=== PATIENT | female | born 2000 | race Caucasian/White ===

== ENCOUNTER 2019-02-18 12:51 | Emergency (ER) | payer SELFPAY ==
[~2019-02-18] VITALS: Ht 152.4 cm; Wt 51.7 kg
[~2019-02-18 12:51] MED LIST: IBUP-1060 PO
--- NOTE | 2019-02-18 14:29 | PHYS DOC ---
Past Medical History Past Medical History: No Pertinent History (GILDA GASPAR APRN) Past Surgical History: Appendectomy, Other Additional Past Surgical Histo: UNKNOWN SURGERY (GILDA GASPAR APRN) Alcohol Use: None Drug Use: None (GILDA GASPAR APRN) Adult General Chief Complaint Chief Complaint: VAGINAL BLEEDING [facility] HPI Patient is a 19 year old female presents for evaluation of vaginal bleeding during . Patient reports is approximately 7 weeks , last menstrual period was 12/30/18. She is . Reports started having some bleeding last Monday. She was seen by an OB doctor, cannot remember the name of the clinic she was at on Monday. She did have a speculum exam at that time. She reports increased bleeding yesterday. Patient is Occitan-speaking only, information was obtained through the superintendent mechanical phone line. She denies medical history or prescription medications. She is unsure what her EDC is for this . She reports suprapubic tenderness. (GILDA GASPAR APRN) Review of Systems Review of Systems Constitutional: Denies fever or chills [] Eyes: Denies change in visual acuity, redness, or eye pain [] HENT: Denies nasal congestion or sore throat [] Respiratory: Denies cough or shortness of breath [] Cardiovascular: No additional information not addressed in [facility] [] GI: REPORTS SUPRAPUBIC PAIN, DENIES nausea, vomiting, bloody stools or diarrhea [] : VAGINAL BLEEDING [] Musculoskeletal: Denies back pain or joint pain [] Integument: Denies rash or skin lesions [] Neurologic: Denies headache, focal weakness or sensory changes [] Endocrine: Denies polyuria or polydipsia [] All other systems were reviewed and found to be within normal limits, except as documented in this note. (GILDA GASPAR APRN) Allergies Allergies Allergies Coded Allergies Type Severity Reaction Last Updated Verified No Known Drug Allergies 02/08/15 No (RADHA PALMA MD) Physical Exam Physical Exam Constitutional: Well developed, well nourished, no acute distress, non-toxic appearance. [] Neck: Normal range of motion, no tenderness, supple, no stridor. [] Cardiovascular:Heart rate regular rhythm, no murmur [] Lungs & Thorax: Bilateral breath sounds clear to auscultation [] Abdomen: Bowel sounds normal, soft, TTP SUPRAPUBIC, no masses, no pulsatile masses. [] Skin: Warm, dry, no erythema, no rash. [] Back: No tenderness, no CVA tenderness. [] : MINIMAL [place] DARK VAGINAL BLOOD IN VAULT, OS CLOSED, NO CMT OR ADNEXAL TTP Extremities: No tenderness, no cyanosis, no clubbing, ROM intact, no edema. [] Neurologic: Alert and oriented X 3, normal motor function, normal sensory function, no focal deficits noted. [] Psychologic: Affect normal, judgement normal, mood normal. [] (GILDA GASPAR APRN) Current Patient Data Vital Signs Vital Signs Date Time Temp Pulse Resp B/P (MAP) Pulse Ox O2 Delivery O2 Flow Rate FiO2 02/18/19 15:40 70 17 102/5 (37) 100 Room Air 02/18/19 13:31 98.3 98.3 (RADHA PALMA MD) Lab Values Laboratory Tests Test 02/18/19 13:48 02/18/19 14:10 02/18/19 14:55 Chlamydia DNA Probe Negative (Negative) Neisseria gonorrhoeae DNA Probe Negative (Negative) Maternal Serum HCG Beta Subunit 2634 mIU/mL (0-5) H Urine Collection Type Unknown Urine Color Yellow Urine Clarity Clear Urine pH 6.0 Urine Specific [place] <=1.005 Urine Protein Negative mg/dL (NEG-TRACE) Urine Glucose (UA) Negative mg/dL (NEG) Urine Ketones (Stick) Negative mg/dL (NEG) Urine Blood Small (NEG) Urine Nitrite Negative (NEG) Urine Bilirubin Negative (NEG) Urine Urobilinogen Dipstick 0.2 mg/dL (0.2 mg/dL) Urine Leukocyte Esterase Negative (NEG) Urine RBC 0 /HPF (0-2) Urine WBC 0 /HPF (0-4) Urine Squamous Epithelial Cells Few /LPF Urine Bacteria 0 /HPF (0-FEW) Microbiology 02/18/19 Wet Prep - Final, Complete (RADHA PALMA MD) EKG EKG [] (GILDA GASPAR APRN) Radiology/Procedures Radiology/Procedures [STATUS: REG ERORD. PHYSICIAN: GILDA GASPAR APRN REASON: bleeding PROCEDURE: OB <14 WKS W/TV Obstetrical ultrasound, 02/18/2019: HISTORY: Vaginal bleeding Transabdominal and transvaginal scans were obtained. The uterus measures 10 x 6 x 5 cm. There is a small smooth cystic structure within the central uterine cavity compatible with a gestational sac. It demonstrates a mean diameter of 6 mm compatible with a gestational age of 5 weeks and 2 days. No yolk sac or pole is evident within this sac. That is not considered abnormal at this early stage. No subchorionic hemorrhage is evident. The ovaries are of normal size. There is a 1.8 cm partially cystic structure in the left ovary, most likely representing a complicated/hemorrhagic cyst. There is blood flow in both ovaries. The adnexal regions are otherwise unremarkable. No free fluid is evident in the pelvis. IMPRESSION: 1. Early intrauterine as described above. Sonographic follow-up is suggested. 2. Small complicated cyst in the left ovary. Electronically signed by: Girish Cain MD (02/18/2019 2:43 PM) [facility] ] (GILDA GASPAR APRN) Course & Med Decision Making Course & Med Decision Making Pertinent Labs and Imaging studies reviewed. (See chart for details) [I spoke with the patient regarding ultrasound results of early intrauterine sac, no visible pole at this time, importance of follow-up with her OB doctor, strict pelvic rest, need for repeat hCG, patient verbalizes understanding of discharge instructions, all discussion was done through the superintendent mechanical phone as she is Occitan-speaking only. Patient's blood type is positive, not a candidate for RhoGAM.] (GILDA GASPAR APRN) Course & Med Decision Making Staff Physician Addendum: I was working in the ER during the course of this patient's visit. I was available for consultation as needed, but I was not directly involved in the care of this patient. (RADHA PALMA MD) Dragon Disclaimer Dragon Disclaimer This electronic medical record was generated, in whole or in part, using a voice recognition dictation system. (GILDA GASPAR APRN) Departure Departure Impression: Primary Impression: Threatened in first trimester Disposition: 01 HOME, SELF-CARE Condition: STABLE Referrals: NO PCP (PCP) Patient Instructions: Threatened Miscarriage, [id number] GILDA GASPAR APRN Feb 18, 2019 14:29 RADHA PALMA MD Feb 19, 2019 23:35
--- NOTE | 2019-02-18 14:46 | RAD ---
Obstetrical ultrasound, 02/18/2019: HISTORY: Vaginal bleeding Transabdominal and transvaginal scans were obtained. The uterus measures 10 x 6 x 5 cm. There is a small smooth cystic structure within the central uterine cavity compatible with a gestational sac. It demonstrates a mean diameter of 6 mm compatible with a gestational age of 5 weeks and 2 days. No yolk sac or pole is evident within this sac. That is not considered abnormal at this early stage. No subchorionic hemorrhage is evident. The ovaries are of normal size. There is a 1.8 cm partially cystic structure in the left ovary, most likely representing a complicated/hemorrhagic cyst. There is blood flow in both ovaries. The adnexal regions are otherwise unremarkable. No free fluid is evident in the pelvis. IMPRESSION: 1. Early intrauterine as described above. Sonographic follow-up is suggested. 2. Small complicated cyst in the left ovary. Electronically signed by: Girish Cain MD (02/18/2019 2:43 PM) [facility]
[2019-02-18 15:04] LABS: BILIRUBIN,URINE NEGATIVE (NEG); CLARITY,URINE CLEAR; COLOR,URINE YELLOW; NITRITE,URINE NEGATIVE (NEG); PROTEIN,URINE NEGATIVE (NEG-TRACE); UROBILINOGEN,URINE 0.2 mg/dL (0.2 mg/dL)
[2019-02-18 15:14] LABS: BACTERIA,URINE 0 /HPF (0-FEW); RBC,URINE 0 /HPF (0-2); SQUAMOUS EPITHELIAL CELL,UR FEW /LPF; WBC,URINE 0 /HPF (0-4)
[2019-02-18 15:40] VITALS: BP 102/5
[2019-02-19 13:49] LABS: GC PROBE Negative (Negative)
== END 2019-02-18 15:50 | disposition home or self-care (01) ==
LOC: ER 12:51
DX: O20.0 Threatened abortion (principal); Z90.89 Acquired absence of other organs; Z3A.01 Less than 8 weeks gestation of pregnancy
CPT/HCPCS: 36415; 76801; 76817; 81001; 84702; 86900; 86901; 87491; 87591; 99285; Q0111

== ENCOUNTER 2019-02-19 22:36 | Emergency (ER) | payer SELFPAY ==
[~2019-02-19] VITALS: Ht 152.4 cm; Wt 51.7 kg
[2019-02-19 23:13] LABS: BILIRUBIN,URINE NEGATIVE (NEG); COLOR,URINE YELLOW; NITRITE,URINE NEGATIVE (NEG); PH,URINE 7.5; PROTEIN,URINE NEGATIVE (NEG-TRACE); UROBILINOGEN,URINE 0.2 mg/dL (0.2 mg/dL)
[2019-02-19 23:19] LABS: BASO % 1 % (0-3); EOS # 0.2 x10^3/uL (0.0-0.7); EOS % 3 % (0-3); HEMATOCRIT 36.6 % (36.0-47.0); LYMPH # 2.5 x10^3/uL (1.0-4.8); LYMPH % 28 % (24-48); MEAN CORPUSCULAR HEMOGLOBIN 29 pg (25-35); MEAN CORPUSCULAR HGB CONC 33 g/dL (31-37); MEAN CORPUSCULAR VOLUME 87 fL (79-100); MONO # 0.7 x10^3/uL (0.0-1.1); MONO % 8 % (0-9); NEUT # 5.4 x10^3uL (1.8-7.7); NEUT % 60 % (31-73); PLATELET COUNT 344 x10^3/uL (140-400); RED BLOOD COUNT 4.19 x10^6/uL (3.50-5.40); RED CELL DISTRIBUTION WIDTH 14.3 % (11.5-14.5); WHITE BLOOD COUNT 8.9 x10^3/uL (4.0-11.0)
[2019-02-19 23:29] LABS: AMORPHOUS SEDIMENT,UR PRESENT /HPF; BACTERIA,URINE FEW /HPF (0-FEW); CLARITY,URINE HAZY; SQUAMOUS EPITHELIAL CELL,UR FEW /LPF; WBC,URINE RARE /HPF (0-4)
[2019-02-19 23:29] LABS: CALCIUM 9.7 mg/dL (8.5-10.1); CREATININE 0.7 mg/dL (0.6-1.0); GFR 106.7; POTASSIUM 4.3 mmol/L (3.5-5.1)
[2019-02-20 00:12] VITALS: BP 105/57
--- NOTE | 2019-02-20 00:40 | PHYS DOC ---
Past Medical History Past Medical History: No Pertinent History (KARMEN ALBERTS APRN) Past Surgical History: Appendectomy, Other Additional Past Surgical Histo: UNKNOWN SURGERY (KARMEN ALBERTS APRN) Alcohol Use: None Drug Use: None (KARMEN ALBERTS APRN) Adult General Chief Complaint Chief Complaint: VAGINAL BLEEDING HPI HPI 19-year-old female presents to ER via POV for complaints of vaginal bleeding and had US/labs obtained. Patient was evaluated in the ER last night for similar symptoms. Patient reports he has had increased bleeding and increased lower abdominal pain. She reports she did pass clots or possible tissue. Patient denies fever, nausea or vomiting, or urinary symptoms. She reports she is 2 para 1 with LMP 12/30/18. (KARMEN ALBERTS APRN) Review of Systems Review of Systems Constitutional: Denies fever or chills [] Respiratory: Denies cough or shortness of breath [] Cardiovascular: No additional information not addressed in HPI [] GI: Denies nausea, vomiting, bloody stools or diarrhea. Reports lower mid abd cramping : Denies dysuria or hematuria. Reports vaginal bleeding Musculoskeletal: Denies back pain or joint pain [] Integument: Denies rash or skin lesions [] Neurologic: Denies headache, focal weakness or sensory changes. Denies dizziness All other systems were reviewed and found to be within normal limits, except as documented in this note. (KARMEN ALBERTS APRN) Allergies Allergies Allergies Coded Allergies Type Severity Reaction Last Updated Verified No Known Drug Allergies 02/08/15 No (RADHA PALMA MD) Physical Exam Physical Exam Constitutional: Well developed, well nourished, no acute distress, non-toxic appearance. [] HENT: Normocephalic, atraumatic, oropharynx moist, nose normal. [] Eyes: Pupils equal, conjunctiva normal, no discharge. [] Neck: Normal range of motion, supple, no stridor. [] Cardiovascular: Heart rate regular rhythm, no murmur [] Lungs & Thorax: Bilateral breath sounds clear to auscultation- resp. equal/nonlabored Abdomen: Bowel sounds normal, soft- no distention/rigidity, tender mid low suprapubic, no masses, no pulsatile masses. [] Skin: Warm, dry, no erythema, no rash. [] Back: No tenderness, no CVA tenderness. [] Extremities: No tenderness, no cyanosis, no clubbing, ROM intact, no edema. [] Neurologic: Alert and oriented X 3, normal motor function, normal sensory funct ion, no focal deficits noted. [] Psychologic: Affect normal, judgement normal, mood normal. [] Pelvic Exam: 0010 External Genitalia: Normal Skin-no rash or lesions Speculum: Normal vaginal mucosa, mild amount darker red blood in vaginal vault. No tissue or clots. Cervical os closed (REFFITT,KARMEN Mccullough APRN) Current Patient Data Vital Signs Vital Signs Date Time Temp Pulse Resp B/P (MAP) Pulse Ox O2 Delivery O2 Flow Rate FiO2 02/20/19 00:12 78 105/57 (73) 100 Room Air 02/19/19 23:15 98.8 16 98.8 (RADHA PALMA MD) Lab Values Laboratory Tests Test 02/19/19 23:00 02/19/19 23:08 Urine Collection Type Unknown Urine Color Yellow Urine Clarity Hazy Urine pH 7.5 Urine Specific [place] 1.020 Urine Protein Negative mg/dL (NEG-TRACE) Urine Glucose (UA) Negative mg/dL (NEG) Urine Ketones (Stick) Negative mg/dL (NEG) Urine Blood Small (NEG) Urine Nitrite Negative (NEG) Urine Bilirubin Negative (NEG) Urine Urobilinogen Dipstick 0.2 mg/dL (0.2 mg/dL) Urine Leukocyte Esterase Negative (NEG) Urine RBC 6-10 /HPF (0-2) Urine WBC Rare /HPF (0-4) Urine Squamous Epithelial Cells Few /LPF Urine Amorphous Sediment Present /HPF Urine Bacteria Few /HPF (0-FEW) Urine Mucus Marked /LPF White Blood Count 8.9 x10^3/uL (4.0-11.0) Red Blood Count 4.19 x10^6/uL (3.50-5.40) Hemoglobin 12.0 g/dL (12.0-15.5) Hematocrit 36.6 % (36.0-47.0) Mean Corpuscular Volume 87 fL (79-100) Mean Corpuscular Hemoglobin 29 pg (25-35) Mean Corpuscular Hemoglobin Concent 33 g/dL (31-37) Red Cell Distribution Width 14.3 % (11.5-14.5) Platelet Count 344 x10^3/uL (140-400) Neutrophils (%) (Auto) 60 % (31-73) Lymphocytes (%) (Auto) 28 % (24-48) Monocytes (%) (Auto) 8 % (0-9) Eosinophils (%) (Auto) 3 % (0-3) Basophils (%) (Auto) 1 % (0-3) Neutrophils # (Auto) 5.4 x10^3uL (1.8-7.7) Lymphocytes # (Auto) 2.5 x10^3/uL (1.0-4.8) Monocytes # (Auto) 0.7 x10^3/uL (0.0-1.1) Eosinophils # (Auto) 0.2 x10^3/uL (0.0-0.7) Basophils # (Auto) 0.0 x10^3/uL (0.0-0.2) Maternal Serum HCG Beta Subunit 1546 mIU/mL (0-5) H Sodium Level 137 mmol/L (136-145) Potassium Level 4.3 mmol/L (3.5-5.1) Chloride Level 103 mmol/L (98-107) Carbon Dioxide Level 27 mmol/L (21-32) Anion Gap 7 (6-14) Blood Urea Nitrogen 14 mg/dL (7-20) Creatinine 0.7 mg/dL (0.6-1.0) Estimated GFR (Cockcroft-Gault) 106.7 Glucose Level 95 mg/dL (70-99) Calcium Level 9.7 mg/dL (8.5-10.1) Laboratory Tests 02/19/19 23:08 Laboratory Tests 02/19/19 23:08 (RADHA PALMA MD) EKG EKG [] (KARMEN ALBERTS APRN) Radiology/Procedures Radiology/Procedures [] (KARMEN ALBERTS APRN) Course & Med Decision Making Course & Med Decision Making Pertinent Labs reviewed. (See chart for details) Pt was evaluated in the ER for c/o vaginal bleeding during her HCG level was rechecked and is down to 1546 where last night level was 2634. Discussed with her passing tissue/clot discharge at home and lower HCG level- probable miscarriage and that she would need f/u with her [facility] [employer] [facility] in 24-48 hours for lab recheck and re-evaluation. Pt is in no distress and reports while in ER her abd pain had subsided and she had no increase in vaginal bleeding. H&H stable at 12.0/36.6. UA neg. for infection other labs unremarkable. Education provided on s&s to return to ER for and discharge instructions were discussed. Pt advised on strict vaginal rest and to avoid insertion of anything vaginal. Discharge instructions were discussed. Pt's blood type from previous results in her records was A+. (KARMEN ALBERTS APRN) Course & Med Decision Making Staff Physician Addendum: I was working in the ER during the course of this patient's visit. I was available for consultation as needed, but I was not directly involved in the care of this patient. (RADHA PALMA MD) Dragon Disclaimer Dragon Disclaimer This electronic medical record was generated, in whole or in part, using a voice recognition dictation system. (KARMEN ALBERTS APRN) Departure Departure Impression: Primary Impression: Threatened in first trimester Disposition: 01 HOME, SELF-CARE Condition: STABLE Referrals: NO PCP (PCP) Patient Instructions: Threatened Miscarriage Additional Instructions: Drink plenty of fluids. Tylenol as needed for pain as directed on container. Your [facility] doctor's office tomorrow and inform them of your Emergency De partment visits and follow-up with them in 48 hours for repeat level. Yesterday's level was 2634 and today that number had gone down to 1546. Take these papers with you to your [facility] [employer] [facility]'s office and show them those results. KARMEN ALBERTS APRN February 20, 2019 00:40 RADHA PALMA MD March 03, 2019 22:13
== END 2019-02-20 00:46 | disposition home or self-care (01) ==
LOC: ER 22:36
DX: O20.0 Threatened abortion (principal); R10.30 Lower abdominal pain, unspecified; Z90.89 Acquired absence of other organs; Z3A.01 Less than 8 weeks gestation of pregnancy
CPT/HCPCS: 36415; 80048; 81001; 84702; 85025; 99284

== ENCOUNTER 2019-10-21 14:33 | Emergency (ER) | payer SELFPAY ==
[~2019-10-21] VITALS: Ht 157.5 cm; Wt 52.2 kg
--- NOTE | 2019-10-21 16:35 | PHYS DOC ---
Past Medical History Past Medical History: No Pertinent History Past Surgical History: Appendectomy Additional Past Surgical Histo: UNKNOWN SURGERY Alcohol Use: None Drug Use: None Adult General Chief Complaint Chief Complaint: VAGINAL BLEEDING HPI HPI Patient is a 19 year old [f__sex] who presents with [] Review of Systems Review of Systems Constitutional: Denies fever or chills [] Eyes: Denies change in visual acuity, redness, or eye pain [] HENT: Denies nasal congestion or sore throat [] Respiratory: Denies cough or shortness of breath [] Cardiovascular: No additional information not addressed in HPI [] GI: Denies abdominal pain, nausea, vomiting, bloody stools or diarrhea [] : Denies dysuria or hematuria [] Musculoskeletal: Denies back pain or joint pain [] Integument: Denies rash or skin lesions [] Neurologic: Denies headache, focal weakness or sensory changes [] Endocrine: Denies polyuria or polydipsia [] All other systems were reviewed and found to be within normal limits, except as documented in this note. Allergies Allergies Allergies Coded Allergies Type Severity Reaction Last Updated Verified No Known Drug Allergies 02/08/15 No Physical Exam Physical Exam Constitutional: Well developed, well nourished, no acute distress, non-toxic appearance. [] HENT: Normocephalic, atraumatic, bilateral external ears normal, oropharynx moist, no oral exudates, nose normal. [] Eyes: PERRLA, EOMI, conjunctiva normal, no discharge. [] Neck: Normal range of motion, no tenderness, supple, no stridor. [] Cardiovascular:Heart rate regular rhythm, no murmur [] Lungs & Thorax: Bilateral breath sounds clear to auscultation [] Abdomen: Bowel sounds normal, soft, no tenderness, no masses, no pulsatile masses. [] Skin: Warm, dry, no erythema, no rash. [] Back: No tenderness, no CVA tenderness. [] Extremities: No tenderness, no cyanosis, no clubbing, ROM intact, no edema. [] Neurologic: Alert and oriented X 3, normal motor function, normal sensory function, no focal deficits noted. [] Psychologic: Affect normal, judgement normal, mood normal. [] Current Patient Data Vital Signs Vital Signs Date Time Temp Pulse Resp B/P (MAP) Pulse Ox O2 Delivery O2 Flow Rate FiO2 12/30/19 16:07 98.8 80 18 101/54 (70) 98 Room Air 98.8 Lab Values Laboratory Tests Test 10/21/19 16:15 10/21/19 16:20 10/21/19 16:30 Urine Collection Type Void Urine Color Yellow Urine Clarity Clear Urine pH 7.0 Urine Specific [place] 1.020 Urine Protein Negative mg/dL (NEG-TRACE) Urine Glucose (UA) Negative mg/dL (NEG) Urine Ketones (Stick) 40 mg/dL (NEG) Urine Blood Negative (NEG) Urine Nitrite Negative (NEG) Urine Bilirubin Negative (NEG) Urine Urobilinogen Dipstick 0.2 mg/dL (0.2 mg/dL) Urine Leukocyte Esterase Trace (NEG) Urine RBC 0 /HPF (0-2) Urine WBC Occ /HPF (0-4) Urine Squamous Epithelial Cells Many /LPF Urine Bacteria Few /HPF (0-FEW) Urine Mucus Slight /LPF POC Urine HCG, Qualitative Hcg positive (Negative) White Blood Count 7.6 x10^3/uL (4.0-11.0) Red Blood Count 4.04 x10^6/uL (3.50-5.40) Hemoglobin 12.1 g/dL (12.0-15.5) Hematocrit 35.3 % (36.0-47.0) L Mean Corpuscular Volume 87 fL (79-100) Mean Corpuscular Hemoglobin 30 pg (25-35) Mean Corpuscular Hemoglobin Concent 34 g/dL (31-37) Red Cell Distribution Width 14.6 % (11.5-14.5) H Platelet Count 297 x10^3/uL (140-400) Neutrophils (%) (Auto) 69 % (31-73) Lymphocytes (%) (Auto) 24 % (24-48) Monocytes (%) (Auto) 6 % (0-9) Eosinophils (%) (Auto) 1 % (0-3) Basophils (%) (Auto) 0 % (0-3) Neutrophils # (Auto) 5.3 x10^3/uL (1.8-7.7) Lymphocytes # (Auto) 1.8 x10^3/uL (1.0-4.8) Monocytes # (Auto) 0.4 x10^3/uL (0.0-1.1) Eosinophils # (Auto) 0.1 x10^3/uL (0.0-0.7) Basophils # (Auto) 0.0 x10^3/uL (0.0-0.2) Maternal Serum HCG Beta Subunit 37145 mIU/mL (0-5) H Laboratory Tests 10/21/19 16:30 EKG EKG [] Radiology/Procedures Radiology/Procedures 1634- Per lab pt's blood type is A+] PROCEDURE: PREG MORE THAN OR EQ TO 14 WKS OB ultrasound greater than 14 weeks limited HISTORY: Vaginal bleeding during Sonographic examination of the was performed by transabdominal technique and multiple static images were obtained. There is a single live intrauterine the heartbeat is confirmed at 147 bpm. The LMP of 07/17/2019 corresponds with 13 week 5 day gestational age and estimated confinement April 22, 2020 Size by ultrasound is 15 weeks 0 days estimated date of confinement April 13, 2020. The measurements are as follows: BPD 2.95 cm 15 weeks 3 days Head circumference 10 cm 14 weeks 6 days Abdominal discomfort is 8.8 cm 15 weeks 0 days Femur length 1.6 cm 40 weeks 5 days Visualization of structures is limited this early gestational age. There is a anterior fundal placenta. Maternal cervix appears normal measures 3.8 cm in length. IMPRESSION: 1. Single live intrauterine measures 15 weeks 0 days gestational age by ultrasound. 2. No abnormality identified. A short-term follow-up ultrasound could be performed if clinically indicated otherwise a structural survey would be performed at 18-21 weeks gestational age. Course & Med Decision Making Course & Med Decision Making Pertinent Labs and Imaging studies reviewed. (See chart for details) [] Dragon Disclaimer Dragon Disclaimer This electronic medical record was generated, in whole or in part, using a voice recognition dictation system. Departure Departure Impression: Primary Impression: Threatened miscarriage Additional Impression: Vaginal bleeding in patient after first trimester Disposition: 01 HOME, SELF-CARE Condition: STABLE Referrals: JARON TENORIO Patient Instructions: Threatened Miscarriage, [id number], Vaginal Bleeding During , Second Trimester Additional Instructions: Pelvic rest as discussed until follow up with Dr. Tabares. Call the office in the morning to schedule follow up in 1-2 days. Return to the ER if symptoms worsen. Problem Qualifiers YURI CARRASCO [employer] Oct 21, 2019 16:35
[2019-10-21 16:37] LABS: BILIRUBIN,URINE NEGATIVE (NEG); CLARITY,URINE CLEAR; COLOR,URINE YELLOW; NITRITE,URINE NEGATIVE (NEG); PROTEIN,URINE NEGATIVE (NEG-TRACE); UROBILINOGEN,URINE 0.2 mg/dL (0.2 mg/dL)
[2019-10-21 16:39] LABS: BASO % 0 % (0-3); EOS # 0.1 x10^3/uL (0.0-0.7); EOS % 1 % (0-3); HEMATOCRIT 35.3 % (36.0-47.0); HEMOGLOBIN 12.1 g/dL (12.0-15.5); LYMPH # 1.8 x10^3/uL (1.0-4.8); LYMPH % 24 % (24-48); MEAN CORPUSCULAR HEMOGLOBIN 30 pg (25-35); MEAN CORPUSCULAR HGB CONC 34 g/dL (31-37); MEAN CORPUSCULAR VOLUME 87 fL (79-100); MONO # 0.4 x10^3/uL (0.0-1.1); MONO % 6 % (0-9); NEUT # 5.3 x10^3/uL (1.8-7.7); NEUT % 69 % (31-73); PLATELET COUNT 297 x10^3/uL (140-400); RED BLOOD COUNT 4.04 x10^6/uL (3.50-5.40); RED CELL DISTRIBUTION WIDTH 14.6 % (11.5-14.5); WHITE BLOOD COUNT 7.6 x10^3/uL (4.0-11.0)
[2019-10-21 16:56] LABS: BACTERIA,URINE FEW /HPF (0-FEW); RBC,URINE 0 /HPF (0-2); SQUAMOUS EPITHELIAL CELL,UR MANY /LPF; WBC,URINE OCC /HPF (0-4)
--- NOTE | 2019-10-21 17:24 | RAD ---
OB ultrasound greater than 14 weeks limited HISTORY: Vaginal bleeding during Sonographic examination of the was performed by transabdominal technique and multiple static images were obtained. There is a single live intrauterine the heartbeat is confirmed at 147 bpm. The LMP of 07/17/2019 corresponds with 13 week 5 day gestational age and estimated confinement April 22, 2020 Size by ultrasound is 15 weeks 0 days estimated date of confinement April 13, 2020. The measurements are as follows: BPD 2.95 cm 15 weeks 3 days Head circumference 10 cm 14 weeks 6 days Abdominal discomfort is 8.8 cm 15 weeks 0 days Femur length 1.6 cm 40 weeks 5 days Visualization of structures is limited this early gestational age. There is a anterior fundal placenta. Maternal cervix appears normal measures 3.8 cm in length. IMPRESSION: 1. Single live intrauterine measures 15 weeks 0 days gestational age by ultrasound. 2. No abnormality identified. A short-term follow-up ultrasound could be performed if clinically indicated otherwise a structural survey would be performed at 18-21 weeks gestational age. Electronically signed by: Pietro Johnson III, MD (10/21/2019 5:21 PM) [facility]
[2019-10-21 18:00] VITALS: BP 104/55
== END 2019-10-21 18:05 | disposition home or self-care (01) ==
LOC: ER 14:33
DX: O20.0 Threatened abortion (principal); O46.92 Antepartum hemorrhage, unspecified, second trimester; Z90.89 Acquired absence of other organs; Z98.890 Other specified postprocedural states; Z3A.15 15 weeks gestation of pregnancy
CPT/HCPCS: 36415; 76805; 81001; 81025; 84702; 85025; 87086; 99285

== ENCOUNTER 2019-12-21 01:10 | Observation (INO) | payer SELFPAY ==
[2019-12-21] MEDS ORDERED: IV RINGERS,LACTATED 1000ML 1,000 ML IV SCH ×2 (01:14)
[2019-12-21] MEDS ORDERED: 0.9 % SODIUM CHLORIDE 10 ML DISP.SYRIN. IV PRN (01:15)
[2019-12-21 01:36] LABS: BILIRUBIN,URINE NEGATIVE (NEG); CLARITY,URINE CLOUDY; COLOR,URINE YELLOW; NITRITE,URINE NEGATIVE (NEG); PH,URINE 6.5; PROTEIN,URINE NEGATIVE (NEG-TRACE)
[2019-12-21 01:44] LABS: BACTERIA,URINE MANY /HPF (0-FEW); WBC,URINE 20-40 /HPF (0-4)
[2019-12-21 01:45] LABS: SQUAMOUS EPITHELIAL CELL,UR MANY /LPF
[2019-12-21 01:51] LABS: BARBITURATES NEG (NEG); BENZODIAZEPINES NEG (NEG); CANNABINOIDS NEG (NEG); COCAINE NEG (NEG); METHADONE NEG (NEG); OPIATES NEG (NEG); PHENCYCLIDINE NEG (NEG)
[2019-12-21 01:52] LABS: AMPHETAMINE/METHAMPHETAMINE NEG (NEG)
[2019-12-21] MEDS ORDERED: hydrOXYzine IM 50 MG/ML VIAL IM PRN (02:00)
[2019-12-21 02:31] LABS: BASO # 0.1 x10^3/uL (0.0-0.2); BASO % 1 % (0-3); EOS # 0.1 x10^3/uL (0.0-0.7); EOS % 0 % (0-3); HEMATOCRIT 33.1 % (36.0-47.0); HEMOGLOBIN 11.3 g/dL (12.0-15.5); LYMPH # 1.8 x10^3/uL (1.0-4.8); LYMPH % 12 % (24-48); MEAN CORPUSCULAR HEMOGLOBIN 30 pg (25-35); MEAN CORPUSCULAR HGB CONC 34 g/dL (31-37); MEAN CORPUSCULAR VOLUME 88 fL (79-100); MONO # 0.7 x10^3/uL (0.0-1.1); MONO % 5 % (0-9); NEUT # 12.8 x10^3/uL (1.8-7.7); NEUT % 83 % (31-73); PLATELET COUNT 324 x10^3/uL (140-400); RED BLOOD COUNT 3.77 x10^6/uL (3.50-5.40); WHITE BLOOD COUNT 15.4 x10^3/uL (4.0-11.0)
[2019-12-21 02:40] LABS: CALCIUM 8.9 mg/dL (8.5-10.1); CREATININE 0.4 mg/dL (0.6-1.0); GFR 203.5; POTASSIUM 3.8 mmol/L (3.5-5.1)
[2019-12-21] MEDS ORDERED: BUTORPHANOL 2 MG/ML VIAL. IV PRN ×2 (02:45)
[2019-12-21 02:47] LABS: ALBUMIN 3.2 g/dL (3.4-5.0); ALBUMIN/GLOBULIN RATIO 0.8 (1.0-1.7); TOTAL BILIRUBIN 0.3 mg/dL (0.2-1.0)
[2019-12-21] MEDS ORDERED: SODIUM PHOSPHATES 19/7GM 133 ML ENEMA. PR PRN (03:00)
[2019-12-21] MEDS ORDERED: AMPICILLIN SODIUM 2 GM in IV NORMAL SALINE 100ML 100 ML IV ONE (03:00)
[2019-12-21] MEDS ORDERED: POLYETHYLENE GLYCOL 3350 17 GM PACKET. PO ONE (03:30)
--- NOTE | 2019-12-21 03:54 | RAD ---
Complete abdominal ultrasound dated 12/21/2019. No comparison available. CLINICAL INDICATION: Pain. FINDINGS: Liver is homogeneous in echogenicity. No focal hepatic mass. Intrahepatic and extra hepatic biliary tree normal in caliber. Common bile duct measures 3 mm. Gallbladder is normal in size and echogenicity. No gallbladder wall thickening or pericholecystic fluid. No gallstones are seen. Right kidney measures 11.5 cm in length. Left kidney measures 11.6 cm in length. There is moderate right hydronephrosis. No apparent mass or shadowing calculus. Spleen is normal in size measuring 11.4 cm longitudinal. Limited visualized portions of pancreas aorta and IVC unremarkable. No significant ascites. Bladder is collapsed and not well evaluated. IMPRESSION: 1. Moderate right-sided hydronephrosis of uncertain etiology. Consider distal obstructing stone or stricture. 2. Otherwise no significant abnormality. Electronically signed by: Srinivas Yadav MD (12/21/2019 3:52 AM) [id number]
[2019-12-21] MEDS ORDERED: ONDANSETRON PF 4 MG/2 ML VIAL. IV PRN (04:00)
--- NOTE | 2019-12-21 04:00 | RAD ---
OB ultrasound dated 12/21/2019: No comparison available. Clinical Indication: Abdominal pain. Findings: There is a single intrauterine gestation in breech presentation. The placenta is fundal in location without evidence of placental previa. The amount of amniotic fluid appears appropriate. Biometrical data is as follows: BPD = 5.9 cm for 24 weeks to days. HC = 21.7 cm for 23 weeks 5 days. AC = 18.6 cmfor 23 weeks 3 days. FL = 4.3 cm for 24 weeks 0 days. Overall, the estimated sonographic gestational age is 23 weeks 6 days for an estimated date of delivery of 04/12/2020. This is approximately 9 days off of the dates adjustment by the last menstrual period Estimated weight is 619 g 59 percent. A 4 chamber heart is identified with positive cardiac activity. The estimated heart rate is 143 beats per minute. Bilateral upper and lower extremities are identified. There is a three-vessel cord with cord insertion visualized. stomach and urinary bladder are identified. Both kidneys are seen. There is mild bilateral pelvocaliectasis, measuring about 3 mm.. Heart palate is not well visualized. Nose and lips are seen. The spine and brain are unremarkable. No gross abnormalities are identified. Impression: Single viable intrauterine gestation with estimated sonographic gestational age of 23 weeks 6 days. No acute findings.. Electronically signed by: Srinivas Yadav MD (12/21/2019 3:57 AM) [id number]
[2019-12-21 05:20] LABS: % ATYL 1 % (0-0); % BANDS 11 % (0-9); % BASOS 1 % (0-3); % LYMPHS 8 % (24-48); % MONOS 6 % (0-10); % MYELOS 2 % (0-0); % SEGS 71 % (35-66); PLT ESTIMATE ADEQUATE (ADEQUATE)
[2019-12-21] MEDS: AMPICILLIN SODIUM 1 GM in IV NORMAL SALINE 50ML 50 ML IV SCH ×2 (06:11→10:45)
--- NOTE | 2019-12-21 10:55 | PDOC ---
GENERAL General: 19 yrs old lady 22 weeks admitted for Abdominal pain. Also has Constipation with Urinary Tract Infection. Sono shows she is 23 weeks and no Gall stones. Pt to take Antibiotics for 10 days and take more fluids and keep up Appointment with her OB doctor for further care. VITAL SIGNS Vital Signs/I&O: Vital Signs Date Time Temp Pulse Resp B/P (MAP) Pulse Ox O2 Delivery O2 Flow Rate FiO2 12/21/19 02:56 Room Air I & O 12/20/19 12/20/19 12/21/19 15:00 23:00 07:00 Intake Total 1000 ml Balance 1000 ml ALLERGIES Allergies: Allergies Coded Allergies Type Severity Reaction Last Updated Verified No Known Drug Allergies 02/08/15 No MEDS Medications: Current Medications Medications (Trade) Dose Ordered Sig/Vanessa Route PRN Reason Start Time Stop Time Status Last Admin Dose Admin Ringer's Solution 1,000 ml @ 1,000 mls/hr Q1H IV 12/21/19 01:14 12/21/19 02:13 DC 12/21/19 02:16 Ringer's Solution 1,000 ml @ 125 mls/hr Q8H IV 12/21/19 01:14 12/21/19 04:38 Hydroxyzine HCl (Vistaril Im) 50 mg PRN Q6HRS PRN IM ITCHING 12/21/19 02:00 12/21/19 02:19 Ampicillin Sodium 2 gm/Sodium Chloride 100 ml @ 200 mls/hr 1X ONCE IV 12/21/19 03:00 12/21/19 03:29 DC 12/21/19 02:17 Ampicillin Sodium 1 gm/Sodium Chloride 50 ml @ 100 mls/hr Q4H IV 12/21/19 07:00 12/21/19 10:45 Butorphanol Tartrate (Stadol) 2 mg PRN Q1HR PRN IV Severe labor pain 12/21/19 02:45 12/21/19 02:56 Sodium Monofluorophosphate (Fleet Adult) 133 ml PRN DAILY PRN LA CONSTIPATION 12/21/19 03:00 12/21/19 03:22 Polyethylene Glycol (miraLAX PACKET) 17 gm 1X ONCE PO 12/21/19 03:30 12/21/19 03:31 DC 12/21/19 09:00 Ondansetron HCl (Zofran) 8 mg PRN Q4HRS PRN IV NAUSEA/VOMITING 1ST CHOICE 12/21/19 04:00 12/21/19 04:32 LAB Lab: Laboratory Tests Test 12/21/19 01:20 12/21/19 02:00 Urine Collection Type Unknown Urine Color Yellow Urine Clarity Cloudy Urine pH 6.5 Urine Specific [place] 1.020 Urine Protein Negative mg/dL (NEG-TRACE) Urine Glucose (UA) Negative mg/dL (NEG) Urine Ketones (Stick) Negative mg/dL (NEG) Urine Blood Small (NEG) Urine Nitrite Negative (NEG) Urine Bilirubin Negative (NEG) Urine Urobilinogen Dipstick 1.0 mg/dL (0.2 mg/dL) Urine Leukocyte Esterase Large (NEG) Urine RBC 11-20 /HPF (0-2) Urine WBC 20-40 /HPF (0-4) Urine Squamous Epithelial Cells Many /LPF Urine Bacteria Many /HPF (0-FEW) Urine Mucus Marked /LPF Urine Opiates Screen Neg (NEG) Urine Methadone Screen Neg (NEG) Urine Barbiturates Neg (NEG) Urine Phencyclidine Screen Neg (NEG) Urine Amphetamine/Methamphetamine Neg (NEG) Urine Benzodiazepines Screen Neg (NEG) Urine Cocaine Screen Neg (NEG) Urine Cannabinoids Screen Neg (NEG) Urine Ethyl Alcohol Neg (NEG) White Blood Count 15.4 x10^3/uL (4.0-11.0) H Red Blood Count 3.77 x10^6/uL (3.50-5.40) Hemoglobin 11.3 g/dL (12.0-15.5) L Hematocrit 33.1 % (36.0-47.0) L Mean Corpuscular Volume 88 fL (79-100) Mean Corpuscular Hemoglobin 30 pg (25-35) Mean Corpuscular Hemoglobin Concent 34 g/dL (31-37) Red Cell Distribution Width 14.0 % (11.5-14.5) Platelet Count 324 x10^3/uL (140-400) Neutrophils (%) (Auto) 83 % (31-73) H Lymphocytes (%) (Auto) 12 % (24-48) L Monocytes (%) (Auto) 5 % (0-9) Eosinophils (%) (Auto) 0 % (0-3) Basophils (%) (Auto) 1 % (0-3) Neutrophils # (Auto) 12.8 x10^3/uL (1.8-7.7) H Lymphocytes # (Auto) 1.8 x10^3/uL (1.0-4.8) Monocytes # (Auto) 0.7 x10^3/uL (0.0-1.1) Eosinophils # (Auto) 0.1 x10^3/uL (0.0-0.7) Basophils # (Auto) 0.1 x10^3/uL (0.0-0.2) Segmented Neutrophils % 71 % (35-66) H Band Neutrophils % 11 % (0-9) H Lymphocytes % 8 % (24-48) L Atypical Lymphocytes % (Manual) 1 % (0-0) H Monocytes % 6 % (0-10) Basophils % 1 % (0-3) Myelocytes % 2 % (0-0) H Platelet Estimate Adequate (ADEQUATE) Sodium Level 137 mmol/L (136-145) Potassium Level 3.8 mmol/L (3.5-5.1) Chloride Level 102 mmol/L (98-107) Carbon Dioxide Level 21 mmol/L (21-32) Anion Gap 14 (6-14) Blood Urea Nitrogen 7 mg/dL (7-20) Creatinine 0.4 mg/dL (0.6-1.0) L Estimated GFR (Cockcroft-Gault) 203.5 BUN/Creatinine Ratio 18 (6-20) Glucose Level 86 mg/dL (70-99) Calcium Level 8.9 mg/dL (8.5-10.1) Total Bilirubin 0.3 mg/dL (0.2-1.0) Aspartate Amino Transferase (AST) 18 U/L (15-37) Alanine Aminotransferase (ALT) 17 U/L (14-59) Alkaline Phosphatase 62 U/L (46-116) Total Protein 7.0 g/dL (6.4-8.2) Albumin 3.2 g/dL (3.4-5.0) L Albumin/Globulin Ratio 0.8 (1.0-1.7) L Amylase Level 70 U/L (25-115) Lipase 80 U/L (73-393) Laboratory Tests 12/21/19 02:00 Laboratory Tests 12/21/19 02:00 JESSI COLON MD Dec 21, 2019 10:55
--- NOTE | 2019-12-21 12:10 | HP ---
ADMIT DATE: 12/21/2019 CHIEF COMPLAINT AND HISTORY OF PRESENT ILLNESS: This patient is a 19-year-old [place] lady who is a 2, para 1 about 20-23 weeks of and came into the hospital Labor and Delivery room because of abdominal pain and also has history of urinary tract infection and she was seen in the hospital and she did have a sonogram, which shows no gallstones at this time. heart tones are good and sonogram otherwise appears normal. She was given IV fluids and IV antibiotics at this time. ALLERGIES: None known. PHYSICAL EXAMINATION: Reveals: ABDOMEN: About 23 weeks' . heart tones are 140 per minute. PELVIC: Shows cervical os is closed. No vaginal bleeding noted. EXTREMITIES: No edema of feet. IMPRESSION: 2, 23 weeks' with urinary tract infection. PLAN: IV fluids, antibiotics. Once she feels better, she will go home with p.o. antibiotics and to be seen by her OB doctor on Monday for a care and treatment. JESSI COLON MD DR: NICKI/danny JOB#: [id number] / [id number]
[2019-12-25] MEDS ORDERED: CEFU250T59 PO (13:12)
== END 2019-12-21 12:07 | disposition home or self-care (01) ==
LOC: 3 SO LND 01:10
PROVIDERS: ADMIT Obstetrics & Gynecology; ATTEND Obstetrics & Gynecology
DX: O23.42 Unspecified infection of urinary tract in pregnancy, second trimester (principal); O26.892 Other specified pregnancy related conditions, second trimester; R10.9 Unspecified abdominal pain; Z3A.23 23 weeks gestation of pregnancy
CPT/HCPCS: 36415; 76700; 76805; 80053; 80307; 81001; 82150; 83690; 85007; 85025; 96365; 96366; 96372; 96375; G0378; G0379; J0290; J0595; J2405; J3410; J7120; 87086

== ENCOUNTER 2019-12-22 16:37 | Observation (INO) | payer SELFPAY ==
[2019-12-22] MEDS ORDERED: ONDANSETRON ODT 4 MG TAB.RAPDIS. PO PRN (17:15)
[2019-12-22] MEDS ORDERED: IV RINGERS,LACTATED 1000ML 1,000 ML IV PRN (17:15)
[2019-12-22] MEDS: IV DEXTROSE 5%-LACT RINGERS 1,000 ML IV SCH (17:27)
[2019-12-22] MEDS: BUTORPHANOL 2 MG/ML VIAL. IV ONE (17:27)
[2019-12-22] MEDS: ONDANSETRON PF 4 MG/2 ML VIAL. IVP PRN (17:28)
[2019-12-22] MEDS: SODIUM PHOSPHATES 19/7GM 133 ML ENEMA. PR ONE (18:04)
[2019-12-22 19:00] LABS: BILIRUBIN,URINE NEGATIVE (NEG); CLARITY,URINE CLOUDY; COLOR,URINE YELLOW; NITRITE,URINE NEGATIVE (NEG); PH,URINE 7.5; PROTEIN,URINE NEGATIVE (NEG-TRACE); UROBILINOGEN,URINE 0.2 mg/dL (0.2 mg/dL)
[2019-12-22 19:07] LABS: BACTERIA,URINE 0 /HPF (0-FEW); RBC,URINE OCC /HPF (0-2); SQUAMOUS EPITHELIAL CELL,UR MANY /LPF
[2019-12-22 19:08] LABS: AMORPHOUS SEDIMENT,UR PRESENT /HPF; YEAST,URINE PRESENT /HPF
[2019-12-25] MEDS ORDERED: CEFU250T59 PO (13:12)
== END 2019-12-22 19:52 | disposition short-term general hospital (02) ==
LOC: 3 SO LND 16:37
PROVIDERS: ADMIT Obstetrics & Gynecology; ATTEND Obstetrics & Gynecology
DX: O21.2 Late vomiting of pregnancy (principal); O99.612 Diseases of the digestive system complicating pregnancy, second trimester; K59.00 Constipation, unspecified; Z3A.22 22 weeks gestation of pregnancy
CPT/HCPCS: 81001; 87086; 96361; 96374; 96375; G0378; G0379; J0595; J2405; J7121

== ENCOUNTER 2020-03-28 23:11 | Observation (INO) | payer SELFPAY ==
[2019-12-25 13:44] VITALS: BP 99/52
[~2020-03-28 23:11] MED LIST changes: +CEFU250T59 PO
[2020-03-28] MEDS ORDERED: IV RINGERS,LACTATED 1000ML 1,000 ML IV SCH (23:30)
[2020-03-28 23:42] LABS: BILIRUBIN,URINE NEGATIVE (NEG); CLARITY,URINE CLEAR; COLOR,URINE YELLOW; NITRITE,URINE NEGATIVE (NEG); PROTEIN,URINE NEGATIVE (NEG-TRACE); UROBILINOGEN,URINE 0.2 mg/dL (0.2 mg/dL)
[2020-03-28 23:57] LABS: BACTERIA,URINE FEW /HPF (0-FEW); SQUAMOUS EPITHELIAL CELL,UR FEW /LPF
[2020-03-29 00:09] LABS: AMNIO PT NEGATIVE
== END 2020-03-29 01:07 | disposition home or self-care (01) ==
LOC: 3 SO LND 23:11
PROVIDERS: ADMIT Obstetrics & Gynecology; ATTEND Obstetrics & Gynecology
DX: O26.893 Other specified pregnancy related conditions, third trimester (principal); R10.2 Pelvic and perineal pain; Z3A.36 36 weeks gestation of pregnancy
CPT/HCPCS: 36415; 81001; 84112; 87086; 87653; G0378; G0379

== ENCOUNTER 2020-04-04 07:32 | Inpatient (IN) | payer SELFPAY ==
[~2020-04-04] VITALS: Ht 152.4 cm; Wt 64.0 kg
[2020-04-04] MEDS ORDERED: IBUPROFEN 400 MG TABLET. PO PRN (07:45)
[2020-04-04] MEDS ORDERED: LIDOCAINE 1% PF 30 ML VIAL. INJ PRN (07:45)
[2020-04-04] MEDS ORDERED: fentaNYL PF VIAL 100 MCG/2 ML VIAL IVP PRN ×2 (07:45)
[2020-04-04] MEDS ORDERED: 0.9 % SODIUM CHLORIDE 10 ML DISP.SYRIN. IV PRN ×2 (07:45→13:15)
[2020-04-04] MEDS ORDERED: ONDANSETRON PF 4 MG/2 ML VIAL. IVP PRN (07:45)
[2020-04-04] MEDS ORDERED: IV RINGERS,LACTATED 1000ML 1,000 ML IV SCH (07:45)
[2020-04-04] MEDS ORDERED: OXYTOCIN 30 UNIT/500 ML PREMIX 500 ML IV PRN ×3 (07:45→13:15)
[2020-04-04] MEDS ORDERED: TERBUTALINE 1 MG/ML VIAL. SQ PRN (07:45)
[2020-04-04] MEDS ORDERED: CITRIC ACID/SODIUM CITRATE 30 ML SOLUTION. PO PRN (07:45)
[2020-04-04 08:20] LABS: BASO % 0 % (0-3); EOS # 0.1 x10^3/uL (0.0-0.7); EOS % 1 % (0-3); HEMATOCRIT 33.6 % (36.0-47.0); HEMOGLOBIN 11.2 g/dL (12.0-15.5); LYMPH # 2.8 x10^3/uL (1.0-4.8); LYMPH % 25 % (24-48); MEAN CORPUSCULAR HEMOGLOBIN 28 pg (25-35); MEAN CORPUSCULAR HGB CONC 33 g/dL (31-37); MEAN CORPUSCULAR VOLUME 85 fL (79-100); MONO # 0.7 x10^3/uL (0.0-1.1); MONO % 7 % (0-9); NEUT # 7.7 x10^3/uL (1.8-7.7); NEUT % 67 % (31-73); PLATELET COUNT 326 x10^3/uL (140-400); RED BLOOD COUNT 3.97 x10^6/uL (3.50-5.40); RED CELL DISTRIBUTION WIDTH 15.4 % (11.5-14.5); WHITE BLOOD COUNT 11.4 x10^3/uL (4.0-11.0)
[2020-04-04 09:10] VITALS: BP 133/81
[2020-04-04] MEDS ORDERED: ROPIVacaine 0.2% PF 10 ML VIAL. ONE ×2 (10:27→11:00)
[2020-04-04] MEDS ORDERED: L&D EPIDURAL SYRINGE 50 ML ONE (10:27)
[2020-04-04] MEDS ORDERED: L&D EPIDURAL 50 ML SYRINGE. ONE (11:00)
--- NOTE | 2020-04-04 11:27 | PDOC1 ---
OB - History Hx of Present Care: Good Care Ultrasounds: Normal mid trimester US Obstetrical Complications: None Medical Complications: None Past Family/Social History * Past Medical, Surgical, Family and Obstetric Histories reviewed from chart. Blood Type: Unknown Rubella: Immune RPR/VDRL: Negative GBS Status: Negative HBsAG: Negative OB - Chief Complaint & HPI Date of Admission: Date of Admission: Apr 04, 2020 at 07:32 Chief Complaint/History : 3 Para: 1 EGA: 37 Reason for admission: active labor, rupture of membranes Admission Nurse Assessment Rev: Yes OB - Admission Exam Physical Exam Vitals: VS - Last 72 Hours, by Label Date Time Temp Pulse Resp B/P (MAP) Pulse Ox O2 Delivery O2 Flow Rate FiO2 04/04/20 09:30 20 04/04/20 09:10 98.3 65 20 133/81 (98) 98.3 HEENT: Normal Heart: Regular Rate Lungs: Clear Abdomen: Gravid, Non tender, Soft Extremities: Edema Reflexes: Normal Cervical Dilatation: 2cm Effacement: 75% Station: -3 Membranes: Ruptured Amniotic Fluid: Thick Meconium Heart Rate: Normal Accelerations: Accelerations Present Decelerations: No decelerations Contractions on Admission: < 5 Minutes Apart Intensity: Moderate Text A: 37 wks IUP SROM P: Admit for labor management. ROSALIA SHABAZZ Jr, MD Apr 04, 2020 11:27
--- NOTE | 2020-04-04 13:06 | PDOC ---
VAGINAL DELIVERY DATE DATE: 04/04/20 TIME: 13:05 : 3 Para: 2 EGA: 37 VAGINAL DELIVERY: VTX VACCUM ASSISTED: No PLACENTA: Spontaneous 8/9 SEX: Male WEIGHT Weight [ pending ] Nuchal Cord: Yes, Times 1 Amniotic Fluid: Thick Meconium PAIN: Epidural EPISIOTOMY: No EXTENSION: No EBL 300 ml COMPLICATIONS none Signs of Intrauterine Infectio: None Shoulder Dystocia: No ROSALIA SHABAZZ Jr, MD Apr 04, 2020 13:06
[2020-04-04] MEDS ORDERED: SIMETHICONE 80 MG TAB.CHEW PO PRN (13:15)
[2020-04-04] MEDS ORDERED: PHENYLEPH/MINERAL OIL/PETROLAT RECTAL OINTMENT TUBE. RC PRN (13:15)
[2020-04-04] MEDS ORDERED: ZOLPIDEM 5 MG TABLET. PO PRN (13:15)
[2020-04-04] MEDS ORDERED: MAGNESIUM HYDROXIDE 2,400 MG/30 ML ORAL.SUSP. PO PRN (13:15)
[2020-04-04] MEDS ORDERED: ACETAMINOPHEN 325 MG TABLET. PO PRN (13:15)
[2020-04-04] MEDS ORDERED: diphenhydrAMINE HCL 25 MG CAPSULE PO PRN (13:15)
[2020-04-04] MEDS ORDERED: BENZOCAINE 20% TOPICAL AEROSOL SPRAY 57GM CAN. TP PRN (13:15)
[2020-04-04] MEDS ORDERED: oxyCODONE/APAP 5/325 1 TAB TABLET PO PRN (13:15)
[2020-04-04] MEDS ORDERED: TDaP (Adacel) per PROTOCOL. MC PRN (13:15)
[2020-04-04] MEDS ORDERED: MAG HYDROX/ALUMINUM HYD/SIMETH 30 ML ORAL.SUSP PO PRN (13:15)
[2020-04-04] MEDS ORDERED: HYDROCORTISONE 1% TOPICAL OINTMENT 30GM TUBE. TP PRN (13:15)
[2020-04-04] MEDS ORDERED: MMR per PROTOCOL. MC PRN (13:15)
[2020-04-04] MEDS: IBUPROFEN 400 MG TABLET. PO PRN (16:33)
[2020-04-04 19:15] VITALS: BP 114/59
[2020-04-05] MEDS: IBUPROFEN 400 MG TABLET. PO PRN ×3 (00:11→16:22)
[2020-04-05] MEDS: DOCUSATE SODIUM 100 MG CAPSULE. PO PRN ×2 (00:11→08:32)
[2020-04-05 00:15] VITALS: BP 107/59
[2020-04-05 04:30] VITALS: BP 106/57
[2020-04-05 06:05] LABS: BASO # 0.1 x10^3/uL (0.0-0.2); BASO % 0 % (0-3); EOS # 0.1 x10^3/uL (0.0-0.7); EOS % 1 % (0-3); HEMATOCRIT 29.4 % (36.0-47.0); HEMOGLOBIN 9.7 g/dL (12.0-15.5); LYMPH # 2.9 x10^3/uL (1.0-4.8); LYMPH % 23 % (24-48); MEAN CORPUSCULAR HEMOGLOBIN 28 pg (25-35); MEAN CORPUSCULAR HGB CONC 33 g/dL (31-37); MEAN CORPUSCULAR VOLUME 86 fL (79-100); MONO # 0.8 x10^3/uL (0.0-1.1); MONO % 6 % (0-9); NEUT # 8.7 x10^3/uL (1.8-7.7); NEUT % 70 % (31-73); PLATELET COUNT 254 x10^3/uL (140-400); RED BLOOD COUNT 3.44 x10^6/uL (3.50-5.40); RED CELL DISTRIBUTION WIDTH 15.5 % (11.5-14.5); WHITE BLOOD COUNT 12.6 x10^3/uL (4.0-11.0)
[2020-04-05] MEDS: MULTIVITAMIN with MINERAL TABLET. PO SCH (08:32)
[2020-04-05] MEDS: FERROUS SULFATE 325 MG TABLET. PO SCH ×2 (08:32→16:21)
[2020-04-05 08:38] VITALS: BP 17/62
[2020-04-05 08:39] VITALS: BP 107/62
[2020-04-05 15:30] VITALS: BP 108/64
--- NOTE | 2020-04-05 15:35 | PDOC ---
OB Progress Note Date of Service 04/05/20 Time of Evaluation 1530 Notes Pt. feeling well. No complaints. Lab Laboratory Tests Test 04/04/20 08:07 04/04/20 09:06 04/05/20 05:40 White Blood Count 11.4 x10^3/uL (4.0-11.0) 12.6 x10^3/uL (4.0-11.0) Red Blood Count 3.97 x10^6/uL (3.50-5.40) 3.44 x10^6/uL (3.50-5.40) Hemoglobin 11.2 g/dL (12.0-15.5) 9.7 g/dL (12.0-15.5) Hematocrit 33.6 % (36.0-47.0) 29.4 % (36.0-47.0) Mean Corpuscular Volume 85 fL (79-100) 86 fL (79-100) Mean Corpuscular Hemoglobin 28 pg (25-35) 28 pg (25-35) Mean Corpuscular Hemoglobin Concent 33 g/dL (31-37) 33 g/dL (31-37) Red Cell Distribution Width 15.4 % (11.5-14.5) 15.5 % (11.5-14.5) Platelet Count 326 x10^3/uL (140-400) 254 x10^3/uL (140-400) Neutrophils (%) (Auto) 67 % (31-73) 70 % (31-73) Lymphocytes (%) (Auto) 25 % (24-48) 23 % (24-48) Monocytes (%) (Auto) 7 % (0-9) 6 % (0-9) Eosinophils (%) (Auto) 1 % (0-3) 1 % (0-3) Basophils (%) (Auto) 0 % (0-3) 0 % (0-3) Neutrophils # (Auto) 7.7 x10^3/uL (1.8-7.7) 8.7 x10^3/uL (1.8-7.7) Lymphocytes # (Auto) 2.8 x10^3/uL (1.0-4.8) 2.9 x10^3/uL (1.0-4.8) Monocytes # (Auto) 0.7 x10^3/uL (0.0-1.1) 0.8 x10^3/uL (0.0-1.1) Eosinophils # (Auto) 0.1 x10^3/uL (0.0-0.7) 0.1 x10^3/uL (0.0-0.7) Basophils # (Auto) 0.0 x10^3/uL (0.0-0.2) 0.1 x10^3/uL (0.0-0.2) Coronavirus (COVID-19)(PCR) Negative (NEGATIVE) Laboratory Tests Test 04/05/20 05:40 White Blood Count 12.6 x10^3/uL (4.0-11.0) Red Blood Count 3.44 x10^6/uL (3.50-5.40) Hemoglobin 9.7 g/dL (12.0-15.5) Hematocrit 29.4 % (36.0-47.0) Mean Corpuscular Volume 86 fL (79-100) Mean Corpuscular Hemoglobin 28 pg (25-35) Mean Corpuscular Hemoglobin Concent 33 g/dL (31-37) Red Cell Distribution Width 15.5 % (11.5-14.5) Platelet Count 254 x10^3/uL (140-400) Neutrophils (%) (Auto) 70 % (31-73) Lymphocytes (%) (Auto) 23 % (24-48) Monocytes (%) (Auto) 6 % (0-9) Eosinophils (%) (Auto) 1 % (0-3) Basophils (%) (Auto) 0 % (0-3) Neutrophils # (Auto) 8.7 x10^3/uL (1.8-7.7) Lymphocytes # (Auto) 2.9 x10^3/uL (1.0-4.8) Monocytes # (Auto) 0.8 x10^3/uL (0.0-1.1) Eosinophils # (Auto) 0.1 x10^3/uL (0.0-0.7) Basophils # (Auto) 0.1 x10^3/uL (0.0-0.2) Medications Current Medications Sodium Chloride (Normal Saline Flush) 3 ml QSHIFT PRN IV AFTER MEDS AND BLOOD DRAWS; Start 04/04/20 at 07:45 Ringer's Solution 1,000 ml @ 125 mls/hr Q8H IV Last administered on 04/04/20at 08:21; Start 04/04/20 at 07:45 Fentanyl Citrate (Fentanyl 2ml Vial) 50 mcg PRN Q30MIN PRN IVP Mild to moderate pain Last administered on 04/04/20at 09:30; Start 04/04/20 at 07:45 Fentanyl Citrate (Fentanyl 2ml Vial) 100 mcg PRN Q30MIN PRN IVP Severe pain; Start 04/04/20 at 07:45 Ondansetron HCl (Zofran) 4 mg PRN Q4HRS PRN IVP NAUSEA/VOMITING; Start 04/04/20 at 07:45 Citric Acid/ Sodium Citrate (Bicitra) 30 ml 1X PRN PRN PO DYSPEPSIA; Start 04/04/20 at 07:45; Stop 04/05/20 at 07:44; Status DC Terbutaline Sulfate (Brethine) 0.25 mg 1X PRN PRN SQ SEE COMMENTS; Start 04/04/20 at 07:45; Stop 04/05/20 at 07:44; Status DC Lidocaine HCl (Xylocaine 1% Pf 30ml Vial) 30 ml 1X PRN PRN INJ SEE COMMENTS; Start 04/04/20 at 07:45; Stop 04/06/20 at 07:44 Oxytocin/Sodium Chloride 500 ml @ 0 mls/hr CONT PRN IV SEE I/O RECORD Last administered on 04/04/20at 09:38; Start 04/04/20 at 07:45 Oxytocin/Sodium Chloride 500 ml @ 0 mls/hr CONT PRN PRN IV Post delivery bleeding; Start 04/04/20 at 07:45 Ibuprofen (Motrin) 800 mg PRN Q6HRS PRN PO INFLAMMATION; Start 04/04/20 at 07:45; Status Cancel Ropivacaine (Naropin 0.2%) 10 ml STK-MED ONCE .ROUTE ; Start 04/04/20 at 10:27; Stop 04/04/20 at 10:27; Status DC Fentanyl Citrate 50 ml @ As Directed STK-MED ONCE .ROUTE ; Start 04/04/20 at 10:27; Stop 04/04/20 at 10:27; Status DC Sodium Chloride (Normal Saline Flush) 10 ml QSHIFT PRN IV AFTER MEDS AND BLOOD DRAWS; Start 04/04/20 at 13:15 Oxytocin/Sodium Chloride 500 ml @ 62.5 mls/hr CONT PRN IV SEE I/O RECORD; Start 04/04/20 at 13:15; Stop 04/04/20 at 21:14; Status DC Acetaminophen (Tylenol) 650 mg PRN Q6HRS PRN PO MILD PAIN / TEMP > 100.3'F; Start 04/04/20 at 13:15 Ibuprofen (Motrin) 800 mg PRN Q8HRS PRN PO INFLAMMATION/PAIN PREVENTION Last administered on 04/05/20at 08:33; Start 04/04/20 at 13:15 Docusate Sodium (Colace) 100 mg PRN BID PRN PO HARD STOOL Last administered on 04/05/20at 08:32; Start 04/04/20 at 13:15 Magnesium Hydroxide (Milk Of Magnesia) 2,400 mg PRN DAILY PRN PO CONSTIPATION; Start 04/04/20 at 13:15 Al Hydroxide/Mg Hydroxide (Mylanta Plus Xs) 30 ml PRN Q4HRS PRN PO HEARTBURN / GAS; Start 04/04/20 at 13:15 Simethicone (Gas-X) 80 mg PRN AFTMEALHC PRN PO GAS / BLOATING; Start 04/04/20 at 13:15 Diphenhydramine HCl (Benadryl) 25 mg PRN Q6HRS PRN PO ITCHING; Start 04/04/20 at 13:15 Benzocaine (Americaine) 1 spray PRN QID PRN TP TOPICAL PAIN Last administered on 04/04/20at 16:33; Start 04/04/20 at 13:15 Phenyleph/Shark Oil/Min Oil/Petrol (Preparation H) 1 nishi PRN QID PRN RC RECTAL PAIN; Start 04/04/20 at 13:15 Hydrocortisone (Cortaid) 1 nishi PRN QID PRN TP PERINEAL PAIN; Start 04/04/20 at 13:15 Ferrous Sulfate (Feosol) 325 mg BIDWMEALS PO Last administered on 04/05/20at 08:32; Start 04/05/20 at 08:00 Zolpidem Tartrate (Ambien) 5 mg PRN QHS PRN PO INSOMNIA, MAY REPEAT X1; Start 04/04/20 at 13:15 Info (Do NOT chart on this placeholder) 1 ea 1X PRN PRN MC SEE COMMENTS; Start 04/04/20 at 13:15 Info (Do NOT chart on this placeholder) 1 ea 1X PRN PRN MC SEE COMMENTS; Start 04/04/20 at 13:15 Oxycodone/ Acetaminophen (Percocet 5/325) 2 tab PRN Q4HRS PRN PO MODERATE PAIN, SEVERE PAIN Last administered on 04/05/20at 04:28; Start 04/04/20 at 13:15 Multivitamins (Thera M Plus) 1 tab DAILY PO Last administered on 04/05/20at 08:32; Start 04/05/20 at 09:00 Active Scripts Active Cefuroxime (Cefuroxime Axetil) 250 Mg Tablet 1 Tab PO BID 7 Days Ibuprofen 800 Mg Tablet 800 Mg PO PRN Q6HRS PRN Exam Abd: soft, non tender, fundus firm Assessment PPD#1 s/p Plan of Care: Continue current Tx, Mgmt ROSALIA SHABAZZ Jr, MD Apr 05, 2020 15:35
[2020-04-05 22:00] VITALS: BP 115/72
[2020-04-06 05:55] VITALS: BP 115/73
[2020-04-06] MEDS: DOCUSATE SODIUM 100 MG CAPSULE. PO PRN (08:38)
[2020-04-06] MEDS: IBUPROFEN 400 MG TABLET. PO PRN (08:38)
[2020-04-06] MEDS: MULTIVITAMIN with MINERAL TABLET. PO SCH (08:38)
[2020-04-06] MEDS: FERROUS SULFATE 325 MG TABLET. PO SCH (08:38)
[2020-04-06 14:49] VITALS: BP 116/75
--- NOTE | 2020-04-06 14:59 | PDOC3 ---
OB DISCHARGE SUMMARY DATE OF ADMISSION: 04/04/20 DATE OF DISCHARGE: 04/06/20 REASON FOR ADMISSION: Onset of labor INTRAPARTUM PROCEDURES: Spontanous Vag Deliv DISCHARGE DIAGNOSIS: Term Delivered DISCHARGE INFORMATION: Activity (ad viviane), Diet (regular), Instructions (pelvic rest x 6 wks), Discharge to HOSPITAL COURSE Term gestation delivered vaginally without diffculty. ROSALIA SHABAZZ Jr, MD Apr 06, 2020 14:59
[2020-04-06] MEDS ORDERED: IBUP-1060 PO (15:00)
--- NOTE | 2020-04-06 15:00 | DISCH ---
DISCHARGE INSTRUCTIONS Condition on Discharge Condition on Discharge: Stable Activity After Discharge Activity Instructions for Disc: Activity as tolerated Lifting Instructions after Dis: No heavy lifting Driving Instructions after Dis: Do not drive today Weight Bearing Status after Di: As tolerated Diet after Discharge Diet after Discharge: Regular Diet Texture: Regular Contacting the DRPedrito after DC Call your doctor for: Concerns you may have Follow-Up Follow up with: [facility] in 6 wks Treatment/Equipment after DC Adaptive Equipment Issued: None ROSALIA SHABAZZ Jr, MD Apr 06, 2020 15:00
--- NOTE | 2020-04-06 15:55 | NUR ---
Discharge and follow up instructions reviewed and given in [place]. Pt denies any questions or complaints at time of D/C. Pt ambulated out of the hospital with Olimpia Liu RN
== END 2020-04-06 15:55 | disposition home or self-care (01) | DRG 807 ==
LOC: 3 SO LND 07:32 → 3 NORTH 17:40
PROVIDERS: ADMIT Obstetrics & Gynecology; ATTEND Obstetrics & Gynecology
PROC: 10E0XZZ Delivery of Products of Conception, External Approach (ICD-10-PCS; principal; 2020-04-04)
PROC: 3E0R3BZ Introduction of Anesthetic Agent into Spinal Canal, Percutaneous Approach (ICD-10-PCS; 2020-04-04)
PROC: 00HU33Z Insertion of Infusion Device into Spinal Canal, Percutaneous Approach (ICD-10-PCS; 2020-04-04)
DX: O77.0 Labor and delivery complicated by meconium in amniotic fluid (principal); Z37.0 Single live birth; O69.81X0 Labor and delivery complicated by cord around neck, without compression, not applicable or unspecified; Z3A.37 37 weeks gestation of pregnancy; Z20.828 Contact with and (suspected) exposure to other viral communicable diseases
CPT/HCPCS: 36415; 85025; 86592; 86850; 86900; 86901; 99285; J2590; J2795; J3010; J7120; U0003; G0378